=== PATIENT | female | born 1960 | race Caucasian/White ===

== ENCOUNTER 2021-12-13 10:37 | Emergency (ER) | payer BC ==
[~2021-12-13] VITALS: Ht 160 cm; Wt 54.0 kg
[~2021-12-13 10:37] MED LIST: AGM875T PO
[2021-12-13] MEDS ORDERED: AMOX1TAB12 PO (10:53)
--- NOTE | 2021-12-13 10:53 | ED Integumentary General ---
General Chief Complaint: Bite-Animal/Human/Insect Stated Complaint: CAT BITE - L INDEX FINGER Source: patient Exam Limitations: no limitations History of Present Illness Date Seen by Provider: Dec 13, 2021 Time Seen by Provider: 10:49 Initial Comments To ER by private vehicle with reports of a cat bite to the left pointer finger. This cat has been familiar with her for quite some time though it typically does not let her get close. Yesterday it was laying in the driveway, has a lean leg. She was not able to back the car around the cat so she went inside got some leather gloves on and went and picked up the cat to move it when it bit her. The cat is now and she is going to have it tested for rabies. She does need a tetanus vaccine and some antibiotics. Timing/Duration: just prior to arrival Severity: moderate Location: extremities Possible Cause: no cause identified Associated Symptoms: denies symptoms Allergies and Home Medications Allergies Coded Allergies: No Known Drug Allergies (Unverified , 12/13/21) Patient Home Medication List Home Medication List Reviewed: Yes Amoxicillin/Clavulanate K (Augmentin 875-125 Tablet) 1 Tab Tablet, 1 TAB PO BID Prescribed by: STACY MCKENNA on 01/21/112047 Review of Systems Review of Systems Constitutional: see HPI EENTM: see HPI Respiratory: no symptoms reported Cardiovascular: no symptoms reported Genitourinary: no symptoms reported Musculoskeletal: no symptoms reported Skin: no symptoms reported Psychiatric/Neurological: No Symptoms Reported Physical Exam Vital Signs Capillary Refill : General Appearance: WD/WN, no apparent distress HEENT: PERRL/EOMI, normal ENT inspection Neck: non-tender, full range of motion Respiratory: no respiratory distress, no accessory muscle use Gastrointestinal: normal bowel sounds, non tender, soft Extremities: normal range of motion, other (Tenderness) Neurologic/Psychiatric: alert, normal mood/affect, oriented x 3 Skin: normal color, warm/dry Skin Problem Character: other (Circumferential erythema to the middle phalanx left pointer finger where there is a dorsal and volar puncture wound without drainage or swelling. The erythema does not extend proximally beyond the MCP joint) Progress/Results/Core Measures Results/Orders My Orders Orders - IRAIS ROSALES APRN Dipht,Pertuss(Acell),Tet Adult (Boostrix (3/23/22 11:00) Departure Impression Primary Impression: Cat bite Disposition: HOME, SELF-CARE Condition: Stable Departure-Patient Inst. Decision time for Depature: 10:51 Referrals: SHAE LOPEZ MD (PCP/Family) Primary Care Physician Patient Instructions: Animal Bites (DC) Add. Discharge Instructions: Antibiotics as soon as possible will help to reduce the likelihood of infection though cat bites are notorious for getting infected. Return to ER for any concerns. Follow-up with your doctor later this week. Get the cat tested for rabies and if by some chance that should come positive then you will need to be vaccinated. All discharge instructions reviewed with patient and/or family. Voiced understanding. Scripts Amoxicillin/Potassium Clav (Amox Tr-K Clv 875-125 mg Tab) 1 Each Tablet 1 EACH PO BID, #14 TAB Prov: IRAIS ROSALES APRN 12/13/21 IRAIS ROSALES APRN Dec 13, 2021 10:53
[2021-12-13] MEDS ORDERED: TETANUS,DIPTH,PERTUSS P/F (BOOSTRIX) 0.5 ML VIAL IM ONE (11:00)
[2021-12-13 11:05] VITALS: BP 175/99
== END 2021-12-13 11:05 | disposition home or self-care (01) ==
LOC: EDUNIT# 10:37 → ER 10:38
DX: S61.251A Open bite of left index finger without damage to nail, initial encounter (principal); Z23 Encounter for immunization; W55.01XA Bitten by cat, initial encounter
CPT/HCPCS: 90471; 90715; 99284